=== PATIENT | female | born 2000 | race Hispanic/Latino ===

== ENCOUNTER 2021-09-20 20:26 | Emergency (ER) | payer OTHER ==
[~2021-09-20] VITALS: Ht 157.5 cm; Wt 126.1 kg
[2021-09-20 22:24] LABS: BASOPHILS % (AUTO) 0.7 % (0.0-5.0); EOSINOPHILS % (AUTO) 2.2 % (0.0-8.0); HEMATOCRIT 30.7 % (36-48); LYMPHOCYTES % (AUTO) 16.8 % (21.0-51.0); MEAN CORPUSCULAR HEMOGLOBIN 22.8 pg (27.0-33.0); MEAN CORPUSCULAR HGB CONC 30.3 g/dL (32.0-36.0); MEAN CORPUSCULAR VOLUME 75.2 fL (79-99); MONOCYTES % (AUTO) 5.1 % (3.0-13.0); NEUTROPHILS % (AUTO) 74.6 % (40.0-77.0); PLATELET COUNT (AUTO) 424 K/uL (130-400); RED BLOOD CELL COUNT(AUTO) 4.08 MIL/uL (4.00-5.50); RED CELL DISTRIBUTION WIDTH 14.8 % (11.0-15.5); WHITE BLOOD COUNT (AUTO) 12.1 K/uL (4.8-10.8)
[2021-09-20 22:36] LABS: CREATININE 0.6 mg/dL (0.5-1.5); POTASSIUM 4.2 mmol/L (3.5-5.1)
[2021-09-20 22:39] LABS: INR 0.97 (0.85-1.15); PROTHROMBIN TIME 10.6 SEC (9.6-11.6)
[2021-09-20 22:47] LABS: ALBUMIN 3.5 g/dL (3.5-5.0); BILIRUBIN,TOTAL 0.3 mg/dL (0.2-1.0); TOTAL PROTEIN, SERUM 7.8 g/dL (6.0-8.3)
[2021-09-20] MEDS ORDERED: ACETAMINOPHEN 500 MG TABLET PO ONE (23:00)
[2021-09-20] MEDS ORDERED: IBUPROFEN 600 MG TABLET PO ONE (23:00)
[2021-09-20] MEDS ORDERED: CYCLOBENZAPRINE HCL 10 MG TABLET PO ONE (23:00)
[2021-09-20] MEDS ORDERED: ONDANSETRON ODT 4MG TAB SL ONE (23:00)
[2021-09-20] MEDS ORDERED: DIPHENHYDRAMINE HCL 25 MG CAPSULE PO ONE (23:00)
[2021-09-20] MEDS ORDERED: IBUPROFEN 600 MG TABLET ONE (23:01)
[2021-09-20] MEDS ORDERED: ACETAMINOPHEN 500 MG TABLET ONE (23:01)
[2021-09-20] MEDS ORDERED: ONDANSETRON ODT 4MG TAB ONE (23:02)
[2021-09-20] MEDS ORDERED: DIPHENHYDRAMINE HCL 25 MG CAPSULE ONE (23:02)
[2021-09-20] MEDS ORDERED: CYCLOBENZAPRINE HCL 10 MG TABLET ONE (23:02)
[2021-09-20] MEDS ORDERED: ONDA4TAB10 PO (23:17)
[2021-09-20] MEDS ORDERED: DICY20TA2 PO (23:17)
[2021-09-20] MEDS ORDERED: CYCL10TA16 PO (23:17)
[2021-09-20 23:34] VITALS: BP 116/71
== END 2021-09-20 23:36 | disposition home or self-care (01) ==
LOC: EDH 20:26
DX: N92.0 Excessive and frequent menstruation with regular cycle (principal); N94.6 Dysmenorrhea, unspecified; Z79.1 Long term (current) use of non-steroidal anti-inflammatories (NSAID)
CPT/HCPCS: 36415; 80053; 84702; 85025; 85610; 86850; 86900; 86901; 99284; Q0163

== ENCOUNTER 2025-06-08 13:18 | Emergency (ER) | payer OTHER ==
[~2025-06-08] VITALS: Ht 157.5 cm; Wt 127.5 kg
[~2025-06-08 13:18] MED LIST: CYCL10TA16 PO; DICY20TA2 PO; ONDA-243 PO
[2025-06-08 14:07] LABS: IMMATURE GRANULOCYTE ABSOLUTE 0.04 K/uL (0-1); NUCLEATED RED BLOOD CELLS 0.0 % (0.0-0.19); PLATELET COUNT (AUTO) 360 K/uL (130-400); RED BLOOD CELL COUNT(AUTO) 3.84 MIL/uL (4.00-5.50); RED CELL DISTRIBUTION WIDTH 14.2 % (11.0-15.5); WHITE BLOOD COUNT (AUTO) 11.9 K/uL (4.8-10.8)
[2025-06-08 14:25] LABS: CREATININE 0.6 mg/dL (0.5-1.0); GLOMERULAR FILTR. RATE CALC 126.0 mL/min (>90); GLUCOSE,RANDOM 78.0 mg/dL (70-105); HCG,QUANTITATIVE 0.0 mIU/mL (0-5); SODIUM SERUM 139.0 mmol/L (136-145); UREA NITROGEN, BLOOD 17.0 mg/dL (7-18)
[2025-06-08] MEDS ORDERED: MEDR5TAB PO (14:37)
[2025-06-08 14:39] VITALS: BP 143/78; PULSE 90; RESP 12; TEMP 98.1; O2SAT 100
--- NOTE | 2025-06-08 14:39 | ERN ---
ED Note History of Present Illness Stated Complaint: VAGINAL BLEEDING X 2 WEEKS Chief Complaint: Vaginal Problems/Bleeding Time Seen by MD: 13:28 Time Seen by Midlevel: 13:30 Dictation: 25-year-old female coming in with complaints of vaginal bleeding. Patient states one week ago she had her menstruation which was normal, then yesterday she has a vaginal bleeding again, heavier than previous week. Patient states today she has changed her pad twice. Patient states she had an iron infusion a couple of months ago where she also has a history of iron deficiency anemia. Allergies: Coded Allergies: No Known Drug Allergies (Unverified Allergy, Unknown, 09/20/21) Home Meds Active Scripts Ondansetron (Ondansetron Odt) 4 Mg Tab.rapdis, 4 MG PO Q6HPRN, #20 TAB 0 Refills Prov:CHA NEAL MD 09/20/21 Dicyclomine HCl (Bentyl) 20 Mg Tab, 20 MG PO Q6HPRN, #20 TAB 0 Refills Prov:CHA NEAL MD 09/20/21 Cyclobenzaprine HCl (Flexeril) 10 Mg Tab, 10 MG PO TIDP, #20 TAB 0 Refills Prov:CHA NEAL MD 09/20/21 Past Medical History Past Medical History: No Pertinent History Surgical History: Tonsillectomy Social History: Lives with family LMP: May 20, 2025 Review of System Dictation Constitutional: Negative for fever,chills, and weight loss Eyes: Negative for injury, pain,redness, and discharge ENT: Negative for injury,pain or swelling Cardiovascular: Negative for chest pain, palpitations, and edema Respiratory: Negative for shortness of breath, cough, and wheezing, Abdomen/GI: Negative for abdominal pain, nausea, vomiting, diarrhea, and con stipation Back: Negative for injury and pain : Negative for injury, bleeding and discharge, vaginal bleeding MS/Extremity: Negative for injury and deformity Skin: Negative for rash, and discoloration Neuro: Negative for headache, weakness, numbness, tingling, and seizure Psych: Negative for suicide ideation, homicidal ideation, and hallucinations Review of Systems: was completed Initial Vital Sign VS Vital Signs Date Time Temp Pulse Resp B/P (MAP) Pulse Ox O2 Delivery O2 Flow Rate FiO2 06/08/25 13:20 98.1 99 16 157/94 97 Room Air 0 06/08/25 13:25 21 Physical Exam Dictation General: awake, alert, NAD Head/Face: Normocephalic, atraumatic Eyes: PERRL, EOMI, vision at baseline ENT: oral cavity clear, TMs clear, no signs of infection Neck: Trachea midline, supple, no nuchal rigidity Cardiovascular: RRR, normal S1/S2, No MRGs, no JVD Respiratory: CTAB, no respiratory distress, No rales or wheezes Abdomen: Soft, non-tender, non-distended, normal bowel sounds, no guarding or rebound. Skin: Warm, dry, normal turgor, no rash MS/Extremity: Pulses equal, no cyanosis, neurovascular intact, FROM Neuro: COAx4, GCS 15, strength 5/5, CN 2-12 intact, normal cerebellar exam, normal gait, Psych: Normal behavior, mood, and affect normal Results (Laboratory/Radiology) Laboratory/Radiology Laboratory Tests Test 06/08/25 13:57 White Blood Count 11.9 K/uL (4.8-10.8) H Red Blood Count 3.84 MIL/uL (4.00-5.50) L Hemoglobin 9.7 g/dL (12.0-16.0) L Hematocrit 30.4 % (36-48) L Mean Corpuscular Volume 79.2 fL (79-99) Mean Corpuscular Hemoglobin 25.3 pg (27.0-33.0) L Mean Corpuscular Hemoglobin Concent 31.9 g/dL (32.0-36.0) L Red Cell Distribution Width 14.2 % (11.0-15.5) Platelet Count 360 K/uL (130-400) Mean Platelet Volume 9.3 fL (7.5-10.5) Immature Granulocyte % (Auto) 0.3 % (0-1) Neutrophils (%) (Auto) 70.2 % (40.0-77.0) Lymphocytes (%) (Auto) 19.2 % (21.0-51.0) L Monocytes (%) (Auto) 7.2 % (3.0-13.0) Eosinophils (%) (Auto) 2.5 % (0.0-8.0) Basophils (%) (Auto) 0.6 % (0.0-5.0) Neutrophils # (Auto) 8.4 K/uL (1.8-7.7) H Lymphocytes # (Auto) 2.3 K/uL (1.0-4.8) Monocytes # (Auto) 0.9 K/uL (0.1-1.0) Eosinophils # (Auto) 0.30 K/uL (0.00-0.70) Basophils # (Auto) 0.07 K/uL (0.00-0.20) Absolute Immature Granulocyte (auto 0.04 K/uL (0-1) Nucleated Red Blood Cells 0.0 % (0.0-0.19) Sodium Level 139 mmol/L (136-145) Potassium Level 3.6 mmol/L (3.5-5.1) Chloride Level 106 mmol/L (101-111) Carbon Dioxide Level 26 mmol/L (21-32) Blood Urea Nitrogen 17 mg/dL (7-18) Creatinine 0.6 mg/dL (0.5-1.0) Glomerular Filtration Rate Calc 126 mL/min (>90) Random Glucose 78 mg/dL (70-105) Total Calcium 8.4 mg/dL (8.5-10.1) L Human Chorionic Gonadotropin, Quant 0 mIU/mL (0-5) Labs Reviewed?: Yes ED Course ED Course Orders Procedure Category Date Status Time Cbc With Differential LAB 06/08/25 Complete 13:44 Basic Metabolic Panel LAB 06/08/25 Complete 13:44 Hcg,Quantitative LAB 06/08/25 Complete 13:44 Vital Signs Date Time Temp Pulse Resp B/P (MAP) Pulse Ox O2 Delivery O2 Flow Rate FiO2 06/08/25 13:25 98.1 99 16 157/94 99 Room Air* 0 21 06/08/25 13:20 98.1 99 16 157/94 97 Room Air 0 Medical Decision Making MDM MDM: 25-year-old female with a history of PCOS coming in with complaints of vaginal bleeding. Patient states one week ago she had her menstruation which was normal, then yesterday she has a vaginal bleeding again, heavier than previous week. Patient states today she has changed her pad twice. Patient states she had an iron infusion a couple of months ago where she also has a history of iron deficiency anemia.CBC shows white count of 11, hemoglobin of 9 and hematocrit of 30. No thrombocytopenia. Chemistry unremarkable. Patient isn't . Discussed with the patient at this time she does not need an emergent blood transfusion however we will discharge patient with the Provera for 10 days and she needs to follow up outpatient with the either PCP or OBGYN. Differential diagnosis: Anemia, menorrhagia, Rationale: Tests considered and ordered secondary to shared decision making include: Previous outside records reviewed: Old ER visits. Risk of complication and/or morbidity or mortality of patient management: None Medications-Per medication reconciliation Need for hospitalization: Patient does not meet criteria for hospitalization. Need for emergency major/minor surgery: No There are no social concerns with this patient. Prescription drug management Prescriptions will include symptomatic care Patient's prior external medical records from other ER visits were reviewed by me as indicated. Prior testing and results from previous visits were reviewed. Prior tests were taken into account with medical decision making and resource utilization, independent historian/historians were used to obtain complete medical history. I independently interpreted the test that were performed, results were reviewed by me and considered findings on radiology if ordered. Medical management and examination interpretation discussions were had by me with other qualified healthcare professionals as indicated for the patient's care. DX & DISP Disposition: Discharge Departure Impression: Primary Impression: Dysmenorrhea Additional Impression: Abnormal uterine bleeding (AUB) Condition: Stable Scripts Medroxyprogesterone Acetate (Provera) 5 Mg Tablet 1 TAB PO DAILY for 15 Days, #15 TAB 0 Refills Prov: GRACE MCARTHUR [employer] 06/08/25 Additional Instructions: Take the prescription as prescribed. Only gave you a prescription for 15 days, you need to follow up with PCP and or with the OBGYN. To the hospital if any worsening symptoms. Referrals: ROMARIO HOANG (PCP) Time of Disposition: 14:37 I have reviewed the case, and I agree with, Diagnosis and Plan GRACE MCARTHUR [employer] Jun 08, 2025 14:38
== END 2025-06-08 14:52 | disposition home or self-care (01) ==
LOC: EDH 13:18
DX: N94.6 Dysmenorrhea, unspecified (principal); Z90.89 Acquired absence of other organs
CPT/HCPCS: 36415; 80048; 84702; 85025; 99283